=== PATIENT | female | born 2000 | race African-American/Black ===

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

== ENCOUNTER 2021-08-29 16:04 | Emergency (ER) | payer OTHER ==
[~2021-08-29 16:04] MED LIST: ONDANSETRON HCL4 M2 PO
== END 2021-08-29 17:34 | disposition left against medical advice (07) ==
LOC: ER 16:04
DX: M54.50 Low back pain, unspecified (principal); Z53.21 Procedure and treatment not carried out due to patient leaving prior to being seen by health care provider; Z88.1 Allergy status to other antibiotic agents

== ENCOUNTER 2021-10-15 21:27 | Emergency (ER) | payer OTHER | END 2021-10-15 23:12 | disposition left against medical advice (07) | LOC: ER 21:27 | DX: R06.02 Shortness of breath (principal); Z53.21 Procedure and treatment not carried out due to patient leaving prior to being seen by health care provider ==